=== PATIENT | male | born 1990 | race American Indian/Alaskan Native ===

== ENCOUNTER 2017-08-10 22:16 | Emergency (ER) | payer MEDICAID ==
[2017-08-10 22:44] VITALS: BP 112/48; PULSE 101; RESP 18; O2SAT 100
--- NOTE | 2017-08-11 00:30 | ED PDOC ---
HPI: Psych/Substance Abuse Time Seen by Provider: 08/11/17 00:10 Chief Complaint (Nursing): Substance Abuse Chief Complaint (Provider): substance abuse Additional Complaint(s): 27yo M in ED bought by EMS for ?substance abuse-pt was demonstrating bizarre behavior on park bench. pt denies drug/alcohol use. opt with slurred speech unstable gait. Past Medical History Reviewed: Historical Data, Nursing Documentation, Vital Signs Vital Signs: Last Vital Signs Temp Pulse 101 H 08/10/17 22:43 Resp 18 08/10/17 22:43 BP 112/48 L 08/10/17 22:43 Pulse Ox 100 08/10/17 22:43 - Medical History PMH: No Chronic Diseases - Family History Family History: States: No Known Family Hx - Allergies Allergies/Adverse Reactions: Allergies Allergy/AdvReac Type Severity Reaction Status Date / Time No Known Allergies Allergy Verified 08/10/17 22:27 Review of Systems ROS Statement: Except As Marked, All Systems Reviewed And Found Negative Psych: Negative for: Depression, Psychosis, Suicidal ideation Physical Exam - Reviewed Nursing Documentation Reviewed: Yes Vital Signs Reviewed: Yes - Physical Exam Appears: Positive for: Well, Non-toxic, No Acute Distress Head Exam: Positive for: ATRAUMATIC, NORMAL INSPECTION, NORMOCEPHALIC Skin: Positive for: Normal Color, Warm, DRY Cardiovascular/Chest: Positive for: Regular Rate, Rhythm Respiratory: Positive for: CNT, Normal Breath Sounds Gastrointestinal/Abdominal: Positive for: Normal Exam, Bowel Sounds, Soft Neurologic/Psych: Positive for: Alert, Oriented - ECG O2 Sat by Pulse Oximetry: 100 - Progress ED Course And Treament: pt will be allowed come to sobriety in ER. Medical Decision Making Medical Decision Making: pt will be d/c clincally sober for d/c Disposition - Clinical Impression Clinical Impression: Substance abuse - Patient ED Disposition Is Patient to be Admitted: No Counseled Patient/Family Regarding: Need For Followup - Disposition Disposition: Routine/Home Disposition Time: 00:46 Condition: STABLE Instructions: Polysubstance Abuse (ED) Forms: [employer] ([place])
== END 2017-08-11 01:04 | disposition home or self-care (01) ==
LOC: H.ER 22:16
DX: F19.10 Other psychoactive substance abuse, uncomplicated (principal)